=== PATIENT | female | born 1990 | race African-American/Black ===

== ENCOUNTER 2022-11-21 11:47 | Outpatient (CLI) | payer OTHER ==
[~2022-11-21] VITALS: Ht 154.9 cm; Wt 83.0 kg
[2022-11-21] VITALS (7 sets, daily range): BP systolic 107–125; BP diastolic 70–85; PULSE 55–68; TEMP 98
[2022-11-21] MEDS ORDERED: MOBIC15 MG PO (12:22)
[2022-11-21] MEDS ORDERED: INDERAL 20MG20 MG PO (12:22)
[2022-11-21] MEDS ORDERED: ZOLOFT 50MG50 MG PO (12:23)
[2022-11-21] MEDS ORDERED: GRALISE300 MG PO (12:24)
[2022-11-21 13:45] LABS: GLUCOSE,CSF 68 mg/dL (40-70); TOTAL PROTEIN,CSF 34 mg/dL (15-45)
[2022-11-21 14:19] LABS: CSF APPEARANCE CLEAR; CSF COLOR COLORLESS; CSF MONONUCLEAR 100 % (70-100); CSF POLYMORPHONUCLEAR 0 % (0-6); CSF RBC 21 /mm3 (0-0)
--- NOTE | 2022-11-21 14:56 | NUR ---
pt tolerated LP recovery period well. she was assisted to main lobby via wheelchair and was accompanied by partner. pt's dressing was clean dry and intact and pt verbalized no headache or pain at time of discharge. pt's vs remained within normal limits and she was free from acute concerns and complaints at time of discharge.
== END 2022-11-21 14:30 | disposition home or self-care (01) ==
LOC: COL.RAD 11:47
PROVIDERS: Psychiatry & Neurology Neurology
DX: G43.709 Chronic migraine without aura, not intractable, without status migrainosus (principal); R90.82 White matter disease, unspecified